=== PATIENT | male | born 2000 | race Caucasian/White ===

== ENCOUNTER 2020-08-19 17:28 | Inpatient (IN) ==
[2020-08-19 19:18] LABS: Basophils % 0.4 %; Eosinophils # 0.2 K/mcL (0.0-0.6); Eosinophils % 1.4 %; Hemoglobin 16.3 g/dL (12.9-16.9); Immature Granulocytes % 0.2 % (0-4); Lymphocytes # 1.9 K/mcL (0.6-4.6); Lymphocytes % 18.3 %; Mean Corpuscular HGB Conc 33.3 g/dL (31.6-35.5); Mean Corpuscular Hemoglobin 27.9 pg (28.0-33.3); Mean Corpuscular Volume 83.8 fL (83.0-100.0); Mean Platelet Volume 9.2 fL (9.4-12.4); Monocytes # 0.7 K/mcL (0.0-1.3); Monocytes % 7.1 %; Neutrophils # 7.6 K/mcL (1.6-8.9); Platelet Count 242 K/mcL (140-400); Red Blood Count 5.85 M/mcL (4.19-5.50); Segmented Neutrophils % 72.6 %; White Blood Count 10.4 K/mcL (4.3-11.1)
[2020-08-19 19:22] LABS: Acetaminophen < 10 mcg/mL (10-20); BUN/Creatinine Ratio 11 (6-26); Blood Urea Nitrogen 10 mg/dL (6-20); Calcium 9.3 mg/dL (8.6-10.3); Carbon Dioxide 25 mEq/L (23-29); Chloride 106 mEq/L (98-107); Chol/HDL Ratio 4.5 (0-4.9); Cholesterol 157 mg/dL (< 200); Ethanol < 10 mg/dL (Less than 10); Glucose 98 mg/dL (70-105); HDL Cholesterol 35 mg/dL (40-59); LDL Cholesterol,Calculated 103 mg/dL (< 100); Osmolality,Calculated 285 (280-300); Potassium 3.9 mEq/L (3.5-5.1); Salicylate < 2.5 mg/dL (15.0-30.0); Sodium 138 mEq/L (136-145); Triglycerides 97 mg/dL (< 150); eGFR For African Americans > 60 (> 60); eGFR For Non-African Americans > 60 (> 60)
[2020-08-19 20:04] LABS: Estimated Average Glucose 97 mg/dl
[2020-08-19 20:27] LABS: Bacteria,Urine Few per hpf (None-Few); Bilirubin,Urine Negative (Negative); Blood,Urine Negative (Negative); Calcium Oxalate Crystals,Urine Present; Clarity,Urine Clear (Clear); Color,Urine Yellow (Yellow); Glucose,Urine (UA) Normal (Normal); Ketones,Urine Trace mg/dL (Negative); Leukocyte Esterase,Urine Negative (Negative); Mucus,Urine Many per lpf (None-Few); Nitrite,Urine Negative (Negative); Protein,Urine 50 mg/dL (Neg-Trace); Specific Gravity,Urine > 1.030 (1.010-1.025); WBC,Urine 0-3 per hpf (0-3)
[2020-08-19 20:37] LABS: Amphetamine Screen,Urine Negative ng/mL (Cutoff=1000); Barbiturate Screen,Urine Negative ng/mL (Cutoff=200); Benzodiazepines Screen,Urine Negative ng/mL (Cutoff=200); Cannabinoid Screen,Urine Positive ng/mL (Cutoff = 50); Cocaine Screen,Urine Negative ng/mL (Cutoff= 300); Opiate Screen,Urine Negative ng/mL (Cutoff=300); Phencyclidine Screen,Urine Negative ng/mL (Cutoff=25)
[2020-08-19] MEDS ORDERED: *HR* LORazepam 2 MG/ML VIAL IM PRN (22:58)
[2020-08-19] MEDS ORDERED: Mag Hydrox/Al Hydrox/Simeth 30 ML UDC PO PRN (22:58)
[2020-08-19] MEDS ORDERED: haloperidoL 5 MG TABLET PO PRN (22:58)
[2020-08-19] MEDS ORDERED: *HR* LORazepam 1 MG TABLET PO PRN (22:58)
[2020-08-19] MEDS ORDERED: MOM Conc 10 ML UD.LIQ PO PRN (22:58)
[2020-08-19] MEDS ORDERED: Haloperidol Lactate 5 MG/ML VIAL IM PRN (22:58)
[2020-08-19] MEDS ORDERED: Acetaminophen 325 MG TABLET PO PRN (22:58)
[2020-08-20] MEDS: traZODone 50 MG TABLET PO PRN ×2 (00:19→20:40)
[2020-08-20] MEDS: hydrOXYzine pamoate 25 MG CAPSULE PO PRN ×2 (00:19→20:40)
[2020-08-20] MEDS: Glycopyrrolate 1 MG TABLET PO SCH ×2 (10:18→20:41)
[2020-08-20] MEDS: Doxycycline 100 MG CAPSULE PO SCH (10:19)
[2020-08-20] MEDS: ARIPiprazole 5 MG TABLET PO SCH (10:19)
[2020-08-20] MEDS: BuPROPion XL (24 HR) 150 MG TABLET PO SCH (10:19)
[2020-08-21] MEDS: Glycopyrrolate 1 MG TABLET PO SCH (10:35)
[2020-08-21] MEDS: ARIPiprazole 5 MG TABLET PO SCH (10:35)
[2020-08-21] MEDS: Doxycycline 100 MG CAPSULE PO SCH (10:35)
[2020-08-21] MEDS: BuPROPion XL (24 HR) 150 MG TABLET PO SCH (10:35)
[2020-08-21 10:52] VITALS: BP 138/90
[2020-08-21] MEDS ORDERED: FLU Vac QV 20-21 (6Month+)/PF 0.5 ML SYRINGE IM ONE (12:45)
== END 2020-08-21 13:00 | disposition home or self-care (01) | DRG 751 ==
LOC: EMEROOARM 17:28 → 1ANU 22:56
PROVIDERS: ADMIT Psychiatry & Neurology Psychiatry; ATTEND Psychiatry & Neurology Psychiatry